=== PATIENT | female | born 1935 | race Caucasian/White ===

== ENCOUNTER 2021-08-11 02:00 | Inpatient (IN) | payer OTHER, SELFPAY ==
[~2021-08-11] VITALS: Ht 167.6 cm; Wt 99.1 kg
[2021-08-11 02:00] VITALS: BP 105/69
--- NOTE | 2021-08-11 02:03 | NUR ---
PT TRANSFERRED TO ER BED 10 VIA EMS
--- NOTE | 2021-08-11 02:03 | NUR ---
RT AT BEDSIDE.
[2021-08-11] MEDS ORDERED: methylPREDNISolone SS 125 MG/2 ML VIAL IVP ONE (02:10)
[2021-08-11] MEDS ORDERED: ALBUTEROL SULFATE/IPRATROPIU 3 ML SOL IH ONE ×2 (02:10→02:15)
[2021-08-11] MEDS ORDERED: MAG SULF 2000 MG/WATER PREMIX 50 ML IV ONE (02:10)
[2021-08-11] MEDS ORDERED: ACETAMINOPHEN 650 MG SUPP RC ONE (02:10)
[2021-08-11] MEDS ORDERED: ALBUTEROL 0.083% 2.5 MG/3 ML NEBU INH ONE (02:15)
--- NOTE | 2021-08-11 02:15 | NUR ---
LAB AT BEDSIDE.
[2021-08-11 02:34] LABS: BASOPHILS % (AUTO) 0.2 % (0.0-2.0); EOSINOPHILS % (AUTO) 0.1 % (0.0-4.0); HEMATOCRIT 34.2 % (36-48); LYMPHOCYTES # (AUTO) 0.5 K/uL (2.5-16.5); MEAN CORPUSCULAR HEMOGLOBIN 32 pg (27-31); MEAN CORPUSCULAR HGB CONC 32 g/dL (33-37); MONOCYTES # (AUTO) 0.3 K/uL (0.8-1.0); MONOCYTES % (AUTO) 3.2 % (1.7-9.3); NEUTROPHILS # (AUTO) 8.4 K/uL (1.8-7.7); NEUTROPHILS % (AUTO) 91.5 % (42.2-75.2); PLATELET COUNT (AUTO) 165 K/uL (140-450); RED BLOOD CELL COUNT(AUTO) 3.49 MIL/uL (4.20-5.40); RED CELL DISTRIBUTION WIDTH 15.1 % (11.6-13.7); WHITE BLOOD COUNT (AUTO) 9.1 K/uL (4.8-10.8)
--- NOTE | 2021-08-11 02:34 | NUR ---
86 YO F BIBA FROM HOME WITH C/C OF SOB [id number]. PER EMS PT WAS FOUND ON THE FLOOR, INCREASED WORK OF BREATHING AT SAT IN 70S. PT WAS GIVEN A BREATHING TX AND PLACED ON CIPAP, O2 MERI TO 90S. DAUGHTER IS NOW AT BEDSIDE, STATES PT WAS NOT FEELING WELL, SAW GEOTECHNICAL ENGINEER YESTERDAY AND WAS TOLD SHE HAS FLUID IN LUNGS. PT NORMALLY USES 3L NC AT HOME, DAUGHTER PUT IT UP TO 5L. PT WAS HOSPITALIZED IN JUN FOR PNA AT [facility]. DAUGHTER REPORTS PT GOT UP TO USE THE RESTROOM AND WHILE TRYING TO GET BACK IN BED SLIPPED. DENIES HITTING HEAD, NO LOC. WHEEZING AUSCULATED THROUGHOUT. INCREASED WORK OF BREATHING OBSERVED. HX:ASTHMA NKA
[2021-08-11] MEDS ORDERED: ACETAMINOPHEN 325 MG TAB PO ONE (02:35)
[2021-08-11 02:48] LABS: ALBUMIN 2.9 g/dL (3.4-5.0); ANION GAP 7.7 (8-16); ASPARTATE AMINOTRANSFERASE 22 U/L (15-37); CARBON DIOXIDE 39.2 mmol/L (21-32); CHLORIDE 97 mmol/L (98-107); CREATININE 0.9 mg/dL (0.6-1.3); GLUCOSE 166 mg/dL (74-106); POTASSIUM 4.9 mmol/L (3.5-5.1); SODIUM SERUM 139 mmol/L (136-145); UREA NITROGEN, BLOOD 20 mg/dL (7-18)
--- NOTE | 2021-08-11 02:58 | NUR ---
SKIN IS INTACT.
--- NOTE | 2021-08-11 03:13 | NUR ---
PT TAKEN TO CT.
[2021-08-11] MEDS ORDERED: MEMA10TA PO (03:25)
[2021-08-11] MEDS ORDERED: MONT10TA35 PO (03:25)
[2021-08-11] MEDS ORDERED: LEVO0.124 PO (03:25)
[2021-08-11] MEDS ORDERED: CARV12.5 PO (03:25)
[2021-08-11] MEDS ORDERED: RIVA20TA PO (03:25)
[2021-08-11] MEDS ORDERED: LOSA100T1 PO (03:25)
[2021-08-11] MEDS ORDERED: FURO-572 PO (03:25)
[2021-08-11] MEDS ORDERED: POTA10TA70 PO (03:25)
[2021-08-11] MEDS ORDERED: GABA100C PO (03:25)
--- NOTE | 2021-08-11 03:28 | NUR ---
PT RETURNED FROM CT
--- NOTE | 2021-08-11 03:54 | NUR ---
RAD AT BEDSIDE.
[2021-08-11] MEDS ORDERED: VANCOMYCIN 1,000 MG in DEXTROSE 5% 250 ML IV ONE (04:10)
[2021-08-11] MEDS ORDERED: CEFEPIME 1,000 MG in DEXTROSE 5% 50 ML IV ONE (04:10)
--- NOTE | 2021-08-11 05:05 | NUR ---
PT PROVIDED NEW SHARON AND BRIEF. PERIWICK APPLIED. PT REPOSITINED LYING SUPINE. HOB ELEVATED . PT ON MORNITOR. ALL VSS.
--- NOTE | 2021-08-11 05:43 | NUR ---
PT'S BP 77/44, PT REPOSITIONED, PLACED IN [place], ROTATED BP CUFF, BP REMAINED SAME. PT STATES SHE FEELS OK. NOTIFIED, RECEIVED FOLLOWING ORDER- MIDODRINE PO TID. ORDERS CARRIED OUT.
[2021-08-11] MEDS ORDERED: CEFEPIME 1,000 MG VIAL ONE (05:50)
[2021-08-11] MEDS ORDERED: MIDODRINE 5 MG TAB ONE (05:57)
--- NOTE | 2021-08-11 06:00 | NUR ---
MIDODRINE 10MG GIVEN PO.
[2021-08-11] MEDS ORDERED: VANCOMYCIN 1,000 MG VIAL ONE (06:21)
--- NOTE | 2021-08-11 07:25 | NUR ---
report given to carlos arcos. transfer of care at this time.
--- NOTE | 2021-08-11 07:27 | NUR ---
REPORT RECEIVED FROM ROBERT MATA FOR TRANSFER OF CARE.
[2021-08-11] MEDS ORDERED: ONDANSETRON 4 MG/2 ML VIAL IVP PRN (07:45)
[2021-08-11] MEDS ORDERED: SODIUM PHOS / POTASSIUM PHOS 1 PKT PDR PO PRN (07:45)
[2021-08-11] MEDS ORDERED: HYDROcodone/APAP 5/325 MG 1 TAB TAB PO PRN (07:45)
[2021-08-11] MEDS ORDERED: DOCUSATE SODIUM 100 MG GELCAP PO PRN (07:45)
[2021-08-11] MEDS ORDERED: MAG SULF 2000 MG/WATER PREMIX 50 ML IV PRN (07:45)
[2021-08-11] MEDS ORDERED: MORPHINE SULFATE 2 MG/ML SYR IVP PRN (07:45)
[2021-08-11] MEDS ORDERED: POTASSIUM CHLORIDE 10 MEQ TABER PO PRN (07:45)
[2021-08-11] MEDS ORDERED: LORazepam 2 MG/ML VIAL IM/IVP PRN (07:45)
[2021-08-11] MEDS: MIDODRINE 5 MG TAB PO SCH ×3 (08:19→18:20)
--- NOTE | 2021-08-11 08:19 | NUR ---
PT PROVIDED WITH BREAKFAST TRAY. ATTEMPTED TO FEED PATIENT, BUT CONTINUES TO FALL ASLEEP
[2021-08-11] MEDS ORDERED: NOREPINEPHRINE 4 MG in DEXTROSE 5% 250 ML IV PRN (09:00)
--- NOTE | 2021-08-11 09:23 | NUR ---
Patient will be admitted to care of DR. BARNES. Admited to TELE. Will go to room ICE BED 1. Belongings list completed. Report to ROBERT SARAH.
--- NOTE | 2021-08-11 09:30 | NUR ---
RECEIVED PT FROM ER NURSE. PT IS ALERT AND ORIENTED X 4 AND IN NO SIGN OF DISTRESS OR AGITATION. TAJIK SPEAKER ONLY. PT HAS A LEFT 20 G AC IV AND A RIGHT 20G FA IV IN PLACE. PT IS ON NC 5 L/MIN AND A PUREWICK IN PLACE. SKIN IS INTACT WITH SOME BRUISING ON BILATERAL LOWER LEGS DUE TO FALL FROM HOME. ALL SAFETY PRECAUTIONS ARE IN PLACE AND WILL CONTINUE TO MONITOR.
[2021-08-11] MEDS: NACL 0.9% 500 ML IV SCH (09:40)
[2021-08-11 10:00] VITALS: BP 104/66
[2021-08-11 10:22] LABS: PROTHROMBIN TIME 11.1 secs (10.8-13.4)
--- NOTE | 2021-08-11 10:41 | NUR ---
PATIENT HAS BEEN SCREENED AND CATEGORIZED HIGH NUTRITION RISK. PATIENT WILL BE SEEN WITHIN 1-2 DAYS OF ADMISSION. / CLAUDETTE PARTIDA RD
--- NOTE | 2021-08-11 12:00 | NUR ---
PT IS CALM AND EATING LUNCH.
--- NOTE | 2021-08-11 12:50 | NUR ---
PT TAKEN TO CT CHEST W/O CONTRAST.
--- NOTE | 2021-08-11 13:07 | NUR ---
PT IS BACK FROM CT. EATING LUNCH.
--- NOTE | 2021-08-11 13:42 | NUR ---
08/11/21 RD INITIAL ASSESSMENT COMPLETED PLEASE REFER TO NUTRITION ASSESSMENT UNDER CARE ACTIVITY FOR ESTIMATED NUTRITIONAL NEEDS. 1. CONTINUE CARDIAC DIET TOLERATED 2. RECOMMEND ENSURE ENLIVE TID PER RD PROTOCOL -WILL PROVIDE 1050 KCAL AND [address] TO FOLLOW-UP 2-3 DAYS, HIGH RISK CLAUDETTE PARTIDA, ORAL
[2021-08-11 14:00] VITALS: BP 126/50
[2021-08-11] MEDS: AZITHROMYCIN 500 MG in DEXTROSE 5% 250 ML IV SCH (14:00)
--- NOTE | 2021-08-11 14:00 | NUR ---
LEFT 20G WRIST IV PLACED.
[2021-08-11 16:28] LABS: FREE T4 (FREE THYROXINE) 1.32 ng/dL (0.76-1.46); PHOSPHORUS 3.6 mg/dL (2.5-4.9); THYROID STIMULATING HORMONE 1.35 uIU/mL (0.34-3.74)
[2021-08-11 18:00] VITALS: BP 135/70
--- NOTE | 2021-08-11 18:00 | NUR ---
BRIGIDO REPLACE AND IS COLLECTING URINE. WILL CONTINUE TO MONITOR.
[2021-08-11] MEDS: FUROSEMIDE 40 MG/4 ML VIAL IVP SCH (18:20)
--- NOTE | 2021-08-11 19:20 | NUR ---
ENDORSE CARE TO INFORMATION RESOURCES DIRECTOR NURSE FOR CONTINUITY OF CARE.
--- NOTE | 2021-08-11 19:20 | NUR ---
RECEIVED PATIENT ON BED, AWAKE ALERT AND ORIENTED, ABLE TO MOVE LIMBS FREELY. ON 5 LITERS 02/ S02 100%. CARDIACSCOPE SHOWS ON SINUS NINI HR 54/MIN. IVF IN PROGRESS IS NORMAL SALINE AT 10 MLHR VIA G20 IV CANNULA ON LEFT WRIST; PATENT AND INTACT. VOIDING THRU PUERWICK. ABDOMEN SOFT, NON TENDER, BOWEL SOUNDS +.NOTED WITH BIG BRUISE OR BLUISH DISCOLORATION ON LEFT LEG UP TO THE KNEE.
[2021-08-11 20:00] VITALS: BP 114/53
--- NOTE | 2021-08-11 21:30 | NUR ---
SETTLED TO SLEEP AFTER AMBIEN TAB WAS GIVEN.
--- NOTE | 2021-08-11 22:00 | NUR ---
ABLE TO TURNED AND REPOSITIONED HERSELF.
[2021-08-11 22:22] LABS: APPEARANCE,URINE CLEAR (CLEAR); BILIRUBIN,URINE NEGATIVE (NEGATIVE); BLOOD, URINE 1+ (NEGATIVE); COLOR,URINE YELLOW (YELLOW); LEUKOCYTE ESTERASE ,URINE 1+ (NEGATIVE); NITRITE, URINE NEGATIVE (NEGATIVE); UGLUCOSE NEGATIVE (NEGATIVE)
[2021-08-11] MEDS: ZOLPIDEM 5 MG TAB PO PRN (22:54)
[2021-08-11 23:08] LABS: RBC,URINE 0-5 /HPF (0-5); WBC,URINE 0-5 /HPF (0-5)
[2021-08-12] VITALS: BP 120/58
--- NOTE | 2021-08-12 03:30 | NUR ---
AWAKE; DENIES ANY PAIN.
[2021-08-12 04:00] VITALS: BP 155/61
--- NOTE | 2021-08-12 04:15 | NUR ---
FOR TRANSFER TO TELEMETRY; REPORT GIVEN TO ROBERT AYERS FOR CONTINUITY OF CARE.
--- NOTE | 2021-08-12 04:40 | NUR ---
RECEIVED PT FROM ICU , TRANSFER TO BED BY MANUAL LIFT AAOX 3TO 4 , NID - O2 SAT WNL . ON O2 AT 2LPM/NC IVSITE INTACT AND PATENT . ON QUINN MONITOR . DENIES ANY PAIN , FALL RISK - PUT ON FALL PREVENTION PROTOCOL - CALL LIGHT WITHIN REACH . WILL CONT. TO MONITOR Addendum: 08/12/21 at 0625 by Naina Magdaleno RN V/S : 100/60 , AZ 59 , RR 20 , TEMP 98.8 , O2 SAT 97 % .
--- NOTE | 2021-08-12 04:40 | NUR ---
TRANSFERRED TO TELE ROOM 107A IN STABLE CONDITION. ENDORSED TO TO ROBERT AYERS.
--- NOTE | 2021-08-12 06:00 | NUR ---
NO COMPLAIN MADE , BP RECHECK 111/67 , O2 SAT WNL , ON TELE MONITOR
--- NOTE | 2021-08-12 07:20 | NUR ---
ENDORSED - PT - STABLE .
--- NOTE | 2021-08-12 07:20 | NUR ---
ENDORSED TO RN AUGUST FOR CONTINUITY OF CARE.
--- NOTE | 2021-08-12 07:30 | NUR ---
RECEIVED REPORT FROM ATHLETIC SCOUT. PATIENT AOX4, ABLE TO MAKE NEEDS KNOWN, RWANDAN SPEAKING. BEDREST, ABLE TO MOVE LIMBS FREELY. ON 4L NC, DENIES PAIN, SOB, DIZZINESS AND PALPITATIONS. ON TELE MONITORING, SINUS RHYTHM. WITH IV LW 20G RUNNING NS AT 10ML/HR. CALL LIGHT WITHIN REACH. PATIENT VERBALIZED UNDERSTANDING WITH THE POC. CALL LIGHT WITHIN REACH. WILL CONTINUE POC AND MONITORING.
[2021-08-12] MEDS: NACL 0.9% 500 ML IV SCH (07:54)
[2021-08-12 08:00] VITALS: BP 140/76
[2021-08-12 08:15] LABS: BASOPHILS % (AUTO) 0.1 % (0.0-2.0); HEMATOCRIT 31.2 % (36-48); HEMOGLOBIN 10.3 g/dL (12.0-16.0); LYMPHOCYTES # (AUTO) 0.7 K/uL (2.5-16.5); MEAN CORPUSCULAR HEMOGLOBIN 32 pg (27-31); MEAN CORPUSCULAR HGB CONC 33 g/dL (33-37); MONOCYTES # (AUTO) 0.6 K/uL (0.8-1.0); MONOCYTES % (AUTO) 5.8 % (1.7-9.3); NEUTROPHILS # (AUTO) 8.7 K/uL (1.8-7.7); NEUTROPHILS % (AUTO) 87.1 % (42.2-75.2); PLATELET COUNT (AUTO) 167 K/uL (140-450); RED BLOOD CELL COUNT(AUTO) 3.22 MIL/uL (4.20-5.40); RED CELL DISTRIBUTION WIDTH 15.2 % (11.6-13.7)
[2021-08-12] MEDS: MIDODRINE 5 MG TAB PO SCH ×3 (08:21→16:58)
[2021-08-12] MEDS: FUROSEMIDE 40 MG/4 ML VIAL IVP SCH (08:21)
--- NOTE | 2021-08-12 09:10 | NUR ---
DUE MEDS GIVEN. TOLERATED WELL
--- NOTE | 2021-08-12 11:00 | NUR ---
BALBINA CARE DONE. TURNED AND REPOSITIONED
[2021-08-12 12:00] VITALS: BP 123/63
[2021-08-12 12:37] LABS: ALBUMIN 2.5 g/dL (3.4-5.0); ANION GAP 9.8 (8-16); ASPARTATE AMINOTRANSFERASE 27 U/L (15-37); CARBON DIOXIDE 35.7 mmol/L (21-32); CHLORIDE 97 mmol/L (98-107); CREATININE 0.8 mg/dL (0.6-1.3); GLUCOSE 117 mg/dL (74-106); MAGNESIUM 2.6 mg/dL (1.8-2.4); POTASSIUM 4.5 mmol/L (3.5-5.1); SODIUM SERUM 138 mmol/L (136-145); TOTAL BILIRUBIN 0.3 mg/dL (0.0-1.0); UREA NITROGEN, BLOOD 20 mg/dL (7-18)
[2021-08-12] MEDS: AZITHROMYCIN 500 MG in DEXTROSE 5% 250 ML IV SCH (13:36)
--- NOTE | 2021-08-12 14:10 | NUR ---
PT RESTING IN BED. NO SOB, NO C/O PAIN
--- NOTE | 2021-08-12 15:30 | NUR ---
SATURATION 100% ON SUPPLEMENTAL OXYGEN AT 4 LPM VIA NC TITRATED FIO2 TO 3 LPM JAYCEE/RN AT BEDSIDE AND AWARE
[2021-08-12 16:00] VITALS: BP 142/71
--- NOTE | 2021-08-12 17:03 | NUR ---
BALBINA CARE DONE. CHANGED PURE WICK. TURNED AND REPOSITIONED
--- NOTE | 2021-08-12 18:55 | NUR ---
DAUGHTER AT BEDSIDE. PATIENT STABLE. NOT IN ANY DISTRESS. NO COMPLAINT AT THIS TIME. ALL NEEDS ATTENDED.
--- NOTE | 2021-08-12 19:29 | NUR ---
RECEIVED BEDSIDE REPORT FROM DAY SHIFT RN FOR CONTINUITY OF CARE. PT IS AWAKE ON 3L NC. DAUGHTER BY BEDSIDE. PT IS NOT IN ANY DISTRESS. BREATHING RHYTHMIC AND UNLABORED. COMMUNICATION BOARD UPDATED. CALL LIGHT WITHIN REACH. ALL SAFETY MEASURES TAKEN. WILL CONTINUE TO MONITOR THE PT.
[2021-08-12 20:00] VITALS: BP 149/91
[2021-08-12] MEDS: ZOLPIDEM 5 MG TAB PO PRN (21:10)
--- NOTE | 2021-08-12 21:15 | NUR ---
PT WANTED SLEEPING MEDICATION TO BE ABLE TO SLEEP. PT WAS GIVEN SLEEPING MEDICATION PER MD ORDER. NO FURTHER COMPLAINS. ALL SAFETY MEASURES TAKEN. WILL CONTINUE TO MONITOR THE PT.
--- NOTE | 2021-08-12 23:50 | NUR ---
PT IS SLEEPING IN BED COMFORTABLY. PT IS ON 3L NC SATING 98%. PT IS NOT IN ANY ACUTE DISTRESS. BREATHING RHYTHMIC AND UNLABORED. COMMUNICATION BOARD UPDATED. CALL LIGHT WITHIN REACH. ALL SAFETY MEASURES TAKEN. WILL CONTINUE TO MONITOR THE PT.
[2021-08-13] VITALS (7 sets, daily range): BP systolic 104–136; BP diastolic 45–86
--- NOTE | 2021-08-13 01:56 | NUR ---
PT IS SLEEPING IN BED COMFORTABLY. PT IS ON 3L NC SATING 95%. PT IS NOT IN ANY ACUTE DISTRESS. BREATHING RHYTHMIC AND UNLABORED. COMMUNICATION BOARD UPDATED. CALL LIGHT WITHIN REACH. ALL SAFETY MEASURES TAKEN. WILL CONTINUE TO MONITOR THE PT.
--- NOTE | 2021-08-13 03:00 | NUR ---
PT WAS CLEANED AND CHANGED. NO FURTHER COMPLAINS FROM THE PT. PT IS NOT IN ANY ACUTE DISTRESS. ALL SAFETY MEASURES TAKEN. WILL CONTINUE TO MONITOR THE PT.
[2021-08-13] MEDS: ACETAMINOPHEN 325 MG TAB PO PRN (04:56)
--- NOTE | 2021-08-13 07:09 | NUR ---
ENDORSED PT TO DAY SHIFT RN FOR CONTINUITY OF CARE. PT IS STABLE.
[2021-08-13 07:37] LABS: ALBUMIN 2.7 g/dL (3.4-5.0); ANION GAP 4.8 (8-16); ASPARTATE AMINOTRANSFERASE 23 U/L (15-37); CHLORIDE 95 mmol/L (98-107); CREATININE 0.7 mg/dL (0.6-1.3); GLUCOSE 91 mg/dL (74-106); MAGNESIUM 2.5 mg/dL (1.8-2.4); POTASSIUM 4.1 mmol/L (3.5-5.1); SODIUM SERUM 138 mmol/L (136-145); TOTAL BILIRUBIN 0.3 mg/dL (0.0-1.0); UREA NITROGEN, BLOOD 17 mg/dL (7-18)
[2021-08-13 07:49] LABS: BASOPHILS % (AUTO) 0.2 % (0.0-2.0); EOSINOPHILS % (AUTO) 0.4 % (0.0-4.0); HEMATOCRIT 34.8 % (36-48); HEMOGLOBIN 11.2 g/dL (12.0-16.0); LYMPHOCYTES # (AUTO) 1.3 K/uL (2.5-16.5); LYMPHOCYTES % (AUTO) 19.2 % (20.5-51.1); MEAN CORPUSCULAR HEMOGLOBIN 32 pg (27-31); MEAN CORPUSCULAR HGB CONC 32 g/dL (33-37); MEAN CORPUSCULAR VOLUME 98.3 fL (80-94); MONOCYTES # (AUTO) 0.7 K/uL (0.8-1.0); MONOCYTES % (AUTO) 10.9 % (1.7-9.3); NEUTROPHILS # (AUTO) 4.7 K/uL (1.8-7.7); NEUTROPHILS % (AUTO) 69.3 % (42.2-75.2); PLATELET COUNT (AUTO) 213 K/uL (140-450); RED BLOOD CELL COUNT(AUTO) 3.54 MIL/uL (4.20-5.40); RED CELL DISTRIBUTION WIDTH 15.1 % (11.6-13.7); WHITE BLOOD COUNT (AUTO) 6.8 K/uL (4.8-10.8)
[2021-08-13 08:00] LABS: CARBON DIOXIDE 42.3 mmol/L (21-32)
[2021-08-13 09:14] LABS: CHOL/HDL RATIO 3.4 (1-4.5)
[2021-08-13] MEDS: FUROSEMIDE 40 MG/4 ML VIAL IVP SCH (09:52)
[2021-08-13] MEDS: MIDODRINE 5 MG TAB PO SCH ×3 (09:52→16:37)
--- NOTE | 2021-08-13 10:18 | NUR ---
PT IS AOX4, VSS, NAD NOTED. PT TOLERATED AM MEDICATIONS. PT DAUGHTER AT BEDSIDE. QUESTIONS/CONCERNS ANSWERED.
[2021-08-13] MEDS: AZITHROMYCIN 500 MG in DEXTROSE 5% 250 ML IV SCH (14:54)
--- NOTE | 2021-08-13 16:47 | NUR ---
DR. RUIZ AWARE PT'S SPUTUM COLLECTION FAILED. PER OKAY TO CANCEL AND NOT COLLECT.
[2021-08-13] MEDS ORDERED: PIPERACILLIN/TAZOBACTAM 3.375 GM VIAL IV ONE (18:36)
[2021-08-13] MEDS: PIPERACILLIN/TAZOBACTAM 3.375 GM in DEXTROSE 5% 50 ML IV SCH (18:46)
--- NOTE | 2021-08-13 19:13 | NUR ---
RECEIVED BEDSIDE REPORT FROM DAY SHIFT RN FOR CONTINUITY OF CARE. PT IS AWAKE ON 3L NC. DINNER BY BEDSIDE. PT IS NOT IN ANY DISTRESS. BREATHING RHYTHMIC AND UNLABORED. COMMUNICATION BOARD UPDATED. CALL LIGHT WITHIN REACH. ALL SAFETY MEASURES TAKEN. WILL CONTINUE TO MONITOR THE PT.
--- NOTE | 2021-08-13 20:30 | NUR ---
PT HR SPIKED UP TO 13OS TO 140S. BP WENT DOWN TO 80S. MESSAGED DR. JORDAN. DR. JORDAN ORDERED EKG STAT AND TO SEND HIM THE PICTURE. EKG WAS DONE AND PICTURE WAS SENT TO HIM OF THE RESULTS A-FIB WITH RVR. DR. JORDAN CALLED AND ORDERED METOPROLOL 5MG IVP. WAITING ON STOCK MIXER TO GET THE MEDICATION. WILL REPORT BACK TO DR. JORDAN ONCE IT IS DONE. Addendum: 08/13/21 at 2242 by Ferny Espana RN TIME WAS 2230
[2021-08-13] MEDS: ZOLPIDEM 5 MG TAB PO PRN (20:34)
--- NOTE | 2021-08-13 20:40 | NUR ---
PT WAS HELPED TO USE BEDSIDE COMMODE. BED WAS CLEANED AND CHANGED. PUREWICK CHANGED. PT IS NOT IN ANY DISTRESS. PT WANTED SOMETHING TO SLEEP. VIRIDIANAIEN WAS GIVEN PER MD ORDER. NO FURTHER COMPLAINS FROM THE PT. ALL SAFETY MEASURES TAKEN. WILL CONTINUE TO MONITOR THE PT.
[2021-08-13] MEDS ORDERED: DILTIAZEM 25 MG/5 ML VIAL IVP ONE ×2 (22:25→22:26)
[2021-08-13] MEDS ORDERED: METOPROLOL 5 MG/5 ML VIAL IVP SCH (22:30)
[2021-08-13] MEDS ORDERED: METOPROLOL 5 MG/5 ML VIAL ONE (22:40)
[2021-08-13] MEDS ORDERED: NOREPINEPHRINE 4 MG in DEXTROSE 5% 250 ML IV PRN (23:05)
[2021-08-13] MEDS ORDERED: AMIODARONE 150 MG in DEXTROSE 5% 100 ML IV SCH (23:05)
[2021-08-13] MEDS ORDERED: ENOXAPARIN 120 MG/0.8 ML SYR SUBQ SCH (23:10)
--- NOTE | 2021-08-13 23:15 | NUR ---
DR. JORDAN ORDERED PT TO BE TRANSFER TO ICU. PT WAS TRANSPORTED SAFETY WITH BELONGINGS. PT IS NOT IN ANY DISTRESS. BREATHING RHYTHMIC AND UNLABORED. PT HAS NO COMPLAINS.
--- NOTE | 2021-08-13 23:20 | NUR ---
RECEIVED PT FROM TELEMETRY UNIT.TRANSFERRED TO ICU 1.MONITORS ATTACHED. ATRIAL FIBRILLATION NOTED ON MONITOR, HR 125.PT AWAKE ALERT AND ORIENTED.AZERBAIJANI SPEAKING.W/PERIPHERAL IV TO LT WRIST G20 INTACT.FLUSHED.SALINE LOCK.SKIN INTACT, BRUISING TO LLE NOTED.PT ABLE TO MOVE ALL EXTREMITIES WITH WEAKNESS.PT WITH PURE WICK CONNECTED TO SUCTION.ADEQUATE URINE OUTPUT NOTED.DENIES PAIN.SAFETY PRECAUTION IN PLACE.CALL LIGHT WITHIN REACH.WILL CLOSELY MONITOR PT
--- NOTE | 2021-08-13 23:22 | NUR ---
CALLED DAUGHTER AUGUST AND INFORMED THAT PT GOT TRANSFERRED TO ICU DUE TO ELEVATED HR AND LOW BP.
[2021-08-13 23:29] LABS: BASOPHILS % (AUTO) 0.4 % (0.0-2.0); EOSINOPHILS # (AUTO) 0.1 K/uL (0-0.4); EOSINOPHILS % (AUTO) 1.1 % (0.0-4.0); HEMATOCRIT 35.7 % (36-48); HEMOGLOBIN 11.6 g/dL (12.0-16.0); LYMPHOCYTES # (AUTO) 1.7 K/uL (2.5-16.5); LYMPHOCYTES % (AUTO) 23.5 % (20.5-51.1); MEAN CORPUSCULAR HEMOGLOBIN 32 pg (27-31); MEAN CORPUSCULAR HGB CONC 33 g/dL (33-37); MEAN CORPUSCULAR VOLUME 97.6 fL (80-94); MONOCYTES # (AUTO) 0.9 K/uL (0.8-1.0); MONOCYTES % (AUTO) 12.3 % (1.7-9.3); NEUTROPHILS # (AUTO) 4.6 K/uL (1.8-7.7); NEUTROPHILS % (AUTO) 62.7 % (42.2-75.2); PLATELET COUNT (AUTO) 248 K/uL (140-450); RED BLOOD CELL COUNT(AUTO) 3.65 MIL/uL (4.20-5.40); RED CELL DISTRIBUTION WIDTH 15.3 % (11.6-13.7); WHITE BLOOD COUNT (AUTO) 7.4 K/uL (4.8-10.8)
--- NOTE | 2021-08-13 23:38 | NUR ---
PT. TRANSFERRED TO THE ICU FOR FURTHER EVALUATION AND FOR CLOSE MONITORING AND OBSERVATION.
[2021-08-13 23:40] LABS: CHLORIDE 93 mmol/L (98-107); CREATININE 0.8 mg/dL (0.6-1.3); GLUCOSE 102 mg/dL (74-106); POTASSIUM 4.5 mmol/L (3.5-5.1); SODIUM SERUM 140 mmol/L (136-145); UREA NITROGEN, BLOOD 19 mg/dL (7-18)
[2021-08-13] MEDS ORDERED: AMIODARONE 450 MG/9 ML VIAL IV ONE (23:45)
[2021-08-13] MEDS ORDERED: AMIODARONE 150 MG/3 ML VIAL IV ONE (23:45)
[2021-08-13 23:47] LABS: ANION GAP 3.7 (8-16)
[2021-08-13 23:48] LABS: CARBON DIOXIDE 47.8 mmol/L (21-32)
--- NOTE | 2021-08-13 23:52 | NUR ---
LOADING DOSE FOR AMIODARONE DRIP STARTED. PT AWAKE ALERT AND ORIENTED.DENIES CHEST PAIN.DENIES ANY PAIN.NO SOB NOTED ON 4LPM 02NC
[2021-08-14] VITALS (23 sets, daily range): BP systolic 111–165; BP diastolic 61–103
[2021-08-14] MEDS: AMIODARONE 450 MG in DEXTROSE 5% 250 ML IV SCH ×2 (00:09→08:08)
--- NOTE | 2021-08-14 00:09 | NUR ---
HR 120'S; STARTED ON AMIODARONE DRIP AT 1MG/MIN.PT AWAKE/DENIES PAIN.DENIES SOB.WILL CONTINUE TO MONITOR PT
[2021-08-14] MEDS ORDERED: PIPERACILLIN/TAZOBACTAM 3.375 GM VIAL IV ONE (02:14)
[2021-08-14] MEDS: PIPERACILLIN/TAZOBACTAM 3.375 GM in DEXTROSE 5% 50 ML IV SCH ×3 (02:28→17:23)
--- NOTE | 2021-08-14 02:30 | NUR ---
pt asleep;easily arousable.due antibiotic administered.denies pain.
--- NOTE | 2021-08-14 05:23 | NUR ---
MORNING CARE DONE.PURE WICK CHANGED.DENIES PAIN.NO SOB NOTED ON 02NC AT 4LPM.STILL ON AMIODARONE DRIP ORDERED
[2021-08-14 05:57] LABS: ALBUMIN 2.5 g/dL (3.4-5.0); ASPARTATE AMINOTRANSFERASE 23 U/L (15-37); CHLORIDE 94 mmol/L (98-107); CREATININE 0.8 mg/dL (0.6-1.3); GLUCOSE 119 mg/dL (74-106); MAGNESIUM 2.2 mg/dL (1.8-2.4); POTASSIUM 4.9 mmol/L (3.5-5.1); SODIUM SERUM 139 mmol/L (136-145); TOTAL BILIRUBIN 0.4 mg/dL (0.0-1.0); UREA NITROGEN, BLOOD 16 mg/dL (7-18)
--- NOTE | 2021-08-14 05:58 | NUR ---
CONVERTED TO SINUS RHYTHM FROM ATRIAL FIBRILLATION.PT ASLEEP;EASILY AROUSABLE.NO SOB NOTED.STILL ON 02NC AT 4LPM.AMIODARONE DRIP STILL INFUSING.
[2021-08-14 06:07] LABS: BASOPHILS % (AUTO) 0.4 % (0.0-2.0); EOSINOPHILS # (AUTO) 0.1 K/uL (0-0.4); EOSINOPHILS % (AUTO) 1.5 % (0.0-4.0); HEMATOCRIT 34.6 % (36-48); HEMOGLOBIN 11.5 g/dL (12.0-16.0); LYMPHOCYTES # (AUTO) 1.9 K/uL (2.5-16.5); LYMPHOCYTES % (AUTO) 27.1 % (20.5-51.1); MEAN CORPUSCULAR HEMOGLOBIN 33 pg (27-31); MEAN CORPUSCULAR HGB CONC 33 g/dL (33-37); MEAN CORPUSCULAR VOLUME 98.2 fL (80-94); MONOCYTES # (AUTO) 0.7 K/uL (0.8-1.0); MONOCYTES % (AUTO) 10.8 % (1.7-9.3); NEUTROPHILS # (AUTO) 4.2 K/uL (1.8-7.7); NEUTROPHILS % (AUTO) 60.2 % (42.2-75.2); PLATELET COUNT (AUTO) 274 K/uL (140-450); RED BLOOD CELL COUNT(AUTO) 3.52 MIL/uL (4.20-5.40); RED CELL DISTRIBUTION WIDTH 15.5 % (11.6-13.7); WHITE BLOOD COUNT (AUTO) 6.9 K/uL (4.8-10.8)
[2021-08-14 06:18] LABS: ANION GAP 3.8 (8-16); CARBON DIOXIDE 46.1 mmol/L (21-32)
--- NOTE | 2021-08-14 07:05 | NUR ---
RECEIVED BEDSIDE REPORT FROM PONCHO BRAGG RN FOR CONTINUITY OF CARE. PT AAOX4, ALERT AND CALM, EYES OPEN, PERRLA. ON 4L NC, SPO2 100%. SR ON THE MONITOR, HR 67. BOWEL SOUNDS ACTIVE. ON CARDIAC DIET. PURE WICK IN PLACE TO SUCTION. 20G IV TO L WRIST PATENT, INTACT. 22G IV TO R HAND PATENT, INTACT, INFUSING AMIODARONE AT 0.5 MG/MIN. ACTIVE ROM. SKIN INTACT. ON STANDARD PRECAUTIONS. ALL SAFETY PRECAUTIONS MET. INITIAL ASSESSMENT COMPLETE. WILL CONTINUE TO CLOSELY MONITOR.
--- NOTE | 2021-08-14 08:17 | NUR ---
DAUGHTER AT BEDSIDE, ASSISTING WITH ORAL CARE.
--- NOTE | 2021-08-14 08:20 | NUR ---
PT EATING BREAKFAST. FINISHED 15%.
[2021-08-14] MEDS: MIDODRINE 5 MG TAB PO SCH (08:46)
[2021-08-14] MEDS: FUROSEMIDE 40 MG/4 ML VIAL IVP SCH (08:46)
[2021-08-14] MEDS ORDERED: ENOXAPARIN 100 MG/ML SYR SUBQ SCH (09:00)
--- NOTE | 2021-08-14 09:50 | NUR ---
PT CLEANED AND REPOSITIONED. YELLOW URINE NOTED ON THE PAD. REPOSITIONED PUREWICK AND CHECKED SUCTION FOR PROPER FUNCTIONING. PT STATES READY TO MAKE STOOL. PROVIDED PT WITH BED VILLALPANDO, UNABLE TO MAKE BM ON BEDPAN. WILL CONTINUE TO CLOSELY MONITOR.
--- NOTE | 2021-08-14 10:32 | NUR ---
WITNESS PHONE CALL BETWEEN DR PHILIP AND PT DAUGHTER AUGUST. DISCUSSING HOME MEDS AND PT MEDICAL HISTORY.
--- NOTE | 2021-08-14 10:36 | NUR ---
SEEN AND EXAMINED BY DR PHILIP. ORDERS RECEIVED.
[2021-08-14] MEDS: ACETAMINOPHEN 325 MG TAB PO PRN (10:46)
--- NOTE | 2021-08-14 14:05 | NUR ---
SEEN AND EXAMINED BY DR URENA
--- NOTE | 2021-08-14 14:30 | NUR ---
SEEN AND EXAMINED BY DR TRAN.
[2021-08-14] MEDS: AMIODARONE 200 MG TAB PO SCH ×2 (15:10→20:38)
--- NOTE | 2021-08-14 17:29 | NUR ---
SEEN AND EXAMINED BY DR RUIZ.
--- NOTE | 2021-08-14 18:25 | NUR ---
DAUGHTER AT BEDSIDE ASSISTING WITH BED BATH AND TOILETING. UPDATED REGARDING PT CONDITION. ALL QUESTIONS ANSWERED AT THIS TIME.
--- NOTE | 2021-08-14 19:07 | NUR ---
ENDORSED BEDSIDE REPORT TO [facility] MAHSA RN FOR CONTINUITY OF CARE.
--- NOTE | 2021-08-14 19:19 | NUR ---
RECEIVED REPORT FROM ZAYDA JONES FOR CONTINUITY OF CARE.
--- NOTE | 2021-08-14 19:42 | NUR ---
[facility] PATIENT CURRENTLY LYING IN BED IN SEMI-FOWLERS POSITIONING WATCHING TV. PATIENT IS CALM AND COOPERATIVE A/Ox4. PATIENT O2 SATURATION CURRENTLY 90 ON 4L NC. ACCESS SITES INCLUDE: RIGHT HAND 20G AND LEFT AC 20 RUNNING NS KVO. PATIENT IS AMBULATORY WITH ASSIST. STATES NO PAIN OR DISTRESS AT THIS TIME. WILL CONTINUE TO MONITOR.
--- NOTE | 2021-08-14 20:25 | NUR ---
RT AT BEDSIDE PROVIDING TREATMENT
[2021-08-14] MEDS: ZOLPIDEM 5 MG TAB PO PRN (20:37)
--- NOTE | 2021-08-14 20:37 | NUR ---
EFRAIN BIRD PROVIDED PER PATIENT REQUEST
[2021-08-14] MEDS: carvediloL 6.25 MG TAB PO SCH (20:38)
[2021-08-14] MEDS: MEROPENEM 1,000 MG in NACL 0.9% 50 ML IV SCH (20:38)
[2021-08-14] MEDS: GABAPENTIN 100 MG CAP PO SCH (20:39)
[2021-08-14] MEDS ORDERED: MONTELUKAST SODIUM 10 MG TAB PO SCH (21:00)
[2021-08-14] MEDS ORDERED: carvediloL 12.5 MG TAB PO SCH (21:00)
--- NOTE | 2021-08-14 22:57 | NUR ---
CONTACTED DR. PHILIP TO INFORM OF PATIENT STATUS. TRANSFER TO TELE ORDER PLACED PER MD.
--- NOTE | 2021-08-14 23:50 | NUR ---
RECEIVED REPORT FROM BEAD WIRE INSULATOR REBECCA. PATIENT NOW IN ROOM 104 B, ON TELE MONITOR. VS TAKEN AND RECORDED. ON OXYGEN OF 4L/NC, BREATHING EVEN AND UNLABORED. NO COMPLAINTS OF PAIN. BED LOCKED AT LOWEST WITH SIDE RAILS UP X 2, CALL LIGHT WITHIN REACH. WILL CONTINUE TO MONITOR PATIENT.
[2021-08-15] VITALS: BP 118/59
[2021-08-15 04:00] VITALS: BP 100/74
[2021-08-15] MEDS: MEROPENEM 1,000 MG in NACL 0.9% 50 ML IV SCH ×2 (05:37→12:52)
[2021-08-15] MEDS: ACETAMINOPHEN 325 MG TAB PO PRN (05:48)
--- NOTE | 2021-08-15 06:20 | NUR ---
ALL DUE MEDS GIVEN TO PATIENT. PRN MED TYLENOL GIVEN FOR HEADACHE. WILL RE-ASSESS FOR MED RESPONSE.
[2021-08-15] MEDS ORDERED: LEVOTHYROXINE 0.025 MG TAB PO SCH (06:30)
[2021-08-15 06:59] LABS: BASOPHILS % (AUTO) 0.6 % (0.0-2.0); EOSINOPHILS # (AUTO) 0.1 K/uL (0-0.4); EOSINOPHILS % (AUTO) 1.9 % (0.0-4.0); HEMOGLOBIN 10.6 g/dL (12.0-16.0); LYMPHOCYTES # (AUTO) 1.1 K/uL (2.5-16.5); LYMPHOCYTES % (AUTO) 24.1 % (20.5-51.1); MEAN CORPUSCULAR HEMOGLOBIN 32 pg (27-31); MEAN CORPUSCULAR HGB CONC 32 g/dL (33-37); MEAN CORPUSCULAR VOLUME 98.4 fL (80-94); MONOCYTES # (AUTO) 0.5 K/uL (0.8-1.0); MONOCYTES % (AUTO) 10.6 % (1.7-9.3); NEUTROPHILS # (AUTO) 2.9 K/uL (1.8-7.7); NEUTROPHILS % (AUTO) 62.8 % (42.2-75.2); PLATELET COUNT (AUTO) 203 K/uL (140-450); RED BLOOD CELL COUNT(AUTO) 3.35 MIL/uL (4.20-5.40); WHITE BLOOD COUNT (AUTO) 4.6 K/uL (4.8-10.8)
--- NOTE | 2021-08-15 07:20 | NUR ---
RECEIVED BEDSIDE REPORT FROM CLOTH TRIMMER HAND NURSE FOR CONTINUITY OF CARE. PT IS AWAKE AND ALERT. A&OX4. ON 4L O2 NC WITH BREATHING UNLABORED. ON TELE MONITOR. INCONTINENT OF BOWEL AND BLADDER WITH DRY DIAPER IN PLACE. SKIN IS WARM, DRY, AND INTACT. IVS ARE IN PLACE. PT IS STABLE. PLAN OF CARE DISCUSSED.
[2021-08-15 07:25] LABS: ALBUMIN 2.5 g/dL (3.4-5.0); ASPARTATE AMINOTRANSFERASE 17 U/L (15-37); CHLORIDE 95 mmol/L (98-107); CREATININE 0.9 mg/dL (0.6-1.3); GLUCOSE 97 mg/dL (74-106); MAGNESIUM 2.3 mg/dL (1.8-2.4); POTASSIUM 4.6 mmol/L (3.5-5.1); TOTAL BILIRUBIN 0.8 mg/dL (0.0-1.0); UREA NITROGEN, BLOOD 13 mg/dL (7-18)
[2021-08-15 08:00] VITALS: BP 119/57
--- NOTE | 2021-08-15 08:13 | NUR ---
RECEIVED ON SUPPLEMENTAL OXYGEN AT 4 LPM VIA NC SATURATION 100% TITRATED FIO2 TO 2 LPM JAVA WEB ARCHITECT TO MONITOR JAXON/ROBERT NOTIFIED
[2021-08-15 08:56] LABS: ANION GAP -9.9 (8-16); CARBON DIOXIDE 59.5 mmol/L (21-32)
[2021-08-15 08:59] LABS: SODIUM SERUM 140 mmol/L (136-145)
[2021-08-15] MEDS ORDERED: MEMANTINE 10 MG TAB PO SCH (09:00)
[2021-08-15] MEDS ORDERED: RIVAROXABAN 10 MG TAB PO SCH (09:00)
[2021-08-15] MEDS ORDERED: FUROSEMIDE 20 MG TAB PO SCH (09:00)
[2021-08-15] MEDS ORDERED: LOSARTAN 50 MG TAB PO SCH (09:00)
[2021-08-15] MEDS: GABAPENTIN 100 MG CAP PO SCH (09:31)
[2021-08-15] MEDS: AMIODARONE 200 MG TAB PO SCH (09:31)
[2021-08-15] MEDS: carvediloL 6.25 MG TAB PO SCH (09:32)
[2021-08-15] MEDS: FUROSEMIDE 40 MG/4 ML VIAL IVP SCH (09:32)
--- NOTE | 2021-08-15 10:00 | NUR ---
PT IS AWAKE AND ALERT. DENIES ANY PAIN OR RESP. DISTRESS. IVS ARE PATENT AND INTACT. PT TOOK ALL MEDS EASILY WITH WATER. WILL CONTINUE TO MONITOR.
--- NOTE | 2021-08-15 10:40 | NUR ---
DR. PHILIP AT BEDSIDE ASSESSING PT. EXPLAINED THAT PT IS READY FOR D/C SUGGESTING SNF WITH PT. DAUGHTER AT BEDSIDE REFUSED SNF AND STATED SHE WILL TAKE HER HOME WITH HOME HEALTH. CHIKA, CIRCUS PERFORMER, CALLED TO BEDSIDE TO ARRANGE HOME HEALTH.
[2021-08-15] MEDS ORDERED: AMIO200T66 PO (11:26)
[2021-08-15] MEDS ORDERED: CARV6.252 PO (11:26)
[2021-08-15] MEDS ORDERED: levoFLOXacin 500 MG TAB PO SCH (11:57)
[2021-08-15 12:00] VITALS: BP 100/53
[2021-08-15] MEDS ORDERED: LEVO-315 PO (12:35)
[2021-08-15 13:24] VITALS: BP 100/53
--- NOTE | 2021-08-15 13:41 | NUR ---
CALLED DAUGHTER AUGUST IN CHART TO INFORM HER THAT PT IS READY FOR PICKUP AND TO GO OVER DISCHARGE INSTRUCTIONS WITH HER. WILL WAIT FOR CALL BACK.
--- NOTE | 2021-08-15 14:39 | NUR ---
DC PLANNING: THE PATIENT PRESENTED TO THE ER FROM HOME WITH C/O OF PROGRESSIVE SOB, PATIENT WAS SATTING 78% ON RA IN THE FIELD, PLACED ON O2. H/O OF COPD, CHF AND AFIB, ON BLOOD THINNERS AT HOME. PLACED ON CPAP AND TRANSITIONED TO NC 5L. CXR SHOWS EFFUSION AND CONSOLIDATION, GIVEN VANCO AND ROCEPHIN. ADMITTED TO ICU, STARTED ON MEREM IV AND AMIODARONE, ID, PULMO AND CARDIAC CONSULTS ORDERED. THE PATIENT WAS DOWNGRADED TO TELEMETRY TODAY. CM SPOKE WITH THE PATIENT AND HER DAUGHTER AARON AT BEDSIDE AND CONFIRMED HER ADDRESS AND PHONE NUMBER. THE PATIENT LIVES WITH HER DAUGHTER, GRANDDAUGHTER AND SISTER IN A SINGLE STORY HOUSE. SHE IS ABLE TO AMBULATE SHORT DISTANCES USING A FWW AND SOMETIMES REQUIRES ASSISTANCE WITH ADL'S BUT IS INDEPENDENT WITH EATING. HAS DME OF O2, FWW AND 3 IN 1 COMMODE AND SEES HER PCP MARGARET FAYE MONTHLY. IS ON SERVICE WITH [employer] ([phone]) FOR PHYSICAL THERAPY AND RN OVERSIGHT. THE PATIENT AND DAUGHTER WOULD LIKE HER TO CONTINUE SERVICE WITH [employer]. PLAN FOR DC HOME TODAY, CLINICAL PACKET SENT TO [employer] WHO CONFIRMED THAT PATIENT IS ON SERVICE WITH THEM AND THAT THEY WILL RESUME CARE. Addendum: 08/15/21 at 1453 by Viktoria Hunt CM Amended: Links added.
--- NOTE | 2021-08-15 14:53 | NUR ---
DAUGHTER, AUGUST, AT BEDSIDE. DISCHARGE INSTRUCTIONS PROVIDED AND FAMILY/PT VERBALIZED UNDERSTANDING. IVS WERE REMOVED IN BOTH ARMS AND BLEEDING CONTROLLED. PT IS STABLE. FAMILY MEMBER GOING HOME TO PARKING METER COLLECTOR OXYGEN TANK AND WILL BE BACK TO PARKING METER COLLECTOR PATIENT.
--- NOTE | 2021-08-15 15:24 | NUR ---
PT WAS DISCHARGED VIA WHEELCHAIR CONNECTED TO HOME OXYGEN 2L O2 NC. PLACED IN CAR BY DAUGHTER AUGUST. PT IS STABLE. NO DISTRESS NOTED. PT DISCHARGED.
[2021-08-16] MEDS ORDERED: FUROSEMIDE 20 MG TAB PO SCH (09:00)
[2021-08-16] MEDS ORDERED: levoFLOXacin 500 MG TAB PO SCH (09:00)
[2021-08-16] MEDS ORDERED: AMIODARONE 200 MG TAB PO SCH (09:00)
== END 2021-08-15 15:15 | disposition home or self-care (01) | DRG 871 ==
LOC: MED 02:00 → MTU 04:58 → MED 04:58 → MIC 07:55 → MTU 08-12 04:52 → MIC 08-13 23:12 → MTU 08-14 23:20
PROVIDERS: ADMIT Student in an Organized Health Care Education/Training Program; ATTEND Student in an Organized Health Care Education/Training Program
DX: A41.51 Sepsis due to Escherichia coli [E. coli] (principal); I50.43 Acute on chronic combined systolic (congestive) and diastolic (congestive) heart failure; J18.9 Pneumonia, unspecified organism; J96.21 Acute and chronic respiratory failure with hypoxia; J44.0 Chronic obstructive pulmonary disease with (acute) lower respiratory infection; E44.0 Moderate protein-calorie malnutrition; J44.1 Chronic obstructive pulmonary disease with (acute) exacerbation; N39.0 Urinary tract infection, site not specified; E66.9 Obesity, unspecified; I48.91 Unspecified atrial fibrillation; I11.0 Hypertensive heart disease with heart failure; I25.10 Atherosclerotic heart disease of native coronary artery without angina pectoris; I27.21 Secondary pulmonary arterial hypertension; Z20.822 Contact with and (suspected) exposure to COVID-19; Z68.35 Body mass index [BMI] 35.0-35.9, adult; Z90.49 Acquired absence of other specified parts of digestive tract; Z99.81 Dependence on supplemental oxygen; Z98.891 History of uterine scar from previous surgery
CPT/HCPCS: 36415; 70450; 71045; 71250; 80048; 80053; 81001; 82150; 83036; 83605; 83690; 83735; 83880; 84100; 84439; 84443; 84484; 85025; 85610; 85730; 87040; 87070; 87081; 87086; 87205; 92610; 93005; 94640; 96365; 96366; 96367; 96375; 97110; 97116; 97163-GP; 97530; 99291; J0282; J0456; J0692; J0696; J1650; J1940; J2185; J2405; J2543; J2930; J3370; J3475; J3490; J7060; J7613; Q0092